=== PATIENT | male | born 1990 | race African-American/Black ===

== ENCOUNTER 2020-07-10 17:20 | Emergency (ER) | payer OTHER ==
[2020-07-10] MEDS ORDERED: IBUPROFEN 600 MG TAB PO STA (17:44)
[2020-07-10] MEDS ORDERED: ACETAMINOPHEN TAB 500 MG TAB PO STA (17:44)
[2020-07-10 17:45] VITALS: RESP 18
--- NOTE | 2020-07-10 18:06 | XR ---
EXAMINATION TYPE: XR hand complete RT DATE OF EXAM: 07/10/2020 COMPARISON: NONE HISTORY: Pain and swelling TECHNIQUE: 3 views FINDINGS: There is mildly impacted fracture of the neck of the fifth metacarpal head. There is appare nt callus formation. The joint spaces are normal. Carpal bones are intact. The fingers appear intact IMPRESSION: Healing impacted and slightly angulated fracture of the fifth metacarpal head.
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
[2020-07-10 18:43] VITALS: BP 170/91; PULSE 85
== END 2020-07-10 18:45 | disposition home or self-care (01) ==
LOC: EDSEX → EC 17:20
DX: S62.396A Other fracture of fifth metacarpal bone, right hand, initial encounter for closed fracture (principal); Z87.891 Personal history of nicotine dependence; W51.XXXA Accidental striking against or bumped into by another person, initial encounter
CPT/HCPCS: 29125; 99284